=== PATIENT | male | born 1960 ===

== ENCOUNTER 2025-04-12 07:00 | Day surgery (SDC) | payer OTHER ==
[~2025-04-12 07:00] MED LIST: ACID REDUCER20 M1 PO; CLONAZEPAM0.5 MG PO; ROSUVASTATIN CA20 MG PO; TRAMADOL HCL E100 MG PO
[2025-04-12] MEDS ORDERED: METRONIDAZOLE/SODIUM CHLORIDE 500 MG/100 ML PIGGYBACK IV ONE (08:25)
[2025-04-12] MEDS ORDERED: POVIDONE-IODINE 118 ML BOTT TOP ONE (09:04)
[2025-04-12] MEDS ORDERED: DIBUCAINE 30 GM TUBE ONE (09:04)
[2025-04-12] MEDS ORDERED: BUPIVACAINE HCL/MPF 0.5% 30ML VIAL ONE (09:04)
[2025-04-12] MEDS ORDERED: ONDANSETRON HCL 2 MG/ML VIAL ONE (11:21)
[2025-04-12] MEDS ORDERED: ONDANSETRON HCL 2 MG/ML VIAL IV ONE (15:35)
== END 2025-04-12 18:20 | disposition home or self-care (01) ==
LOC: CIR.AMB 07:00
PROVIDERS: ATTEND Colon & Rectal Surgery
DX: K64.2 Third degree hemorrhoids (principal); K64.4 Residual hemorrhoidal skin tags; Z88.0 Allergy status to penicillin